=== PATIENT | female | born 1995 | race Two or more races ===

== ENCOUNTER 2020-11-23 12:00 | Day surgery (SDC) | payer OTHER ==
[2020-11-23] MEDS ORDERED: PERCOCET 5-3251 EACH PO (17:22)
== END 2020-11-23 19:30 | disposition home or self-care (01) ==
LOC: CIR.AMB 12:00
PROVIDERS: ATTEND Obstetrics & Gynecology Gynecology
DX: D27.0 Benign neoplasm of right ovary (principal)